=== PATIENT | male | born 1985 | race Caucasian/White ===

== ENCOUNTER → 2018-01-23 | Emergency (ER) | payer OTHER ==
[~2018-01-23] VITALS: Ht 182.9 cm; Wt 93.0 kg
[~2018-01-23] MED LIST: KEFLEX500 M1 PO; NOVOLOG100 UNIT/1 SUBQ
[2018-01-23 09:58] VITALS: BP 143/79
== END ==
LOC: M.ERS 08:19
DX: S91.332A Puncture wound without foreign body, left foot, initial encounter (principal); E11.9 Type 2 diabetes mellitus without complications; X58.XXXA Exposure to other specified factors, initial encounter; Y93.89 Activity, other specified; Y92.89 Other specified places as the place of occurrence of the external cause; Y99.8 Other external cause status